=== PATIENT | male | born 1945 | race Caucasian/White ===

== ENCOUNTER 2018-05-27 08:32 | Emergency (ER) | payer MEDICARE ==
[2018-05-27 09:59] LABS: ALT (SGPT) 22 U/L (8-55); AST (SGOT) 28 U/L (5-34); Albumin 4.1 g/dL (3.4-4.8); Alkaline Phosphatase 59 U/L (40-150); Anion Gap 12 mmol/L (10-20); BUN (Urea Nitrogen) 15 mg/dL (8.4-25.7); Bilirubin, Total 0.6 mg/dL (0.2-1.2); Calc. Creatinine Clearance 0 mL/min (70-130); Calcium 9.4 mg/dL (7.8-10.44); Carbon Dioxide 25 mmol/L (23-31); Chloride 108 mmol/L (98-107); Estimated GFR-MDRD 79; Globulin 2.9 g/dL (2.4-3.5); Glucose 107 mg/dL (80-115); Potassium 4.2 mmol/L (3.5-5.1); Sodium 141 mmol/L (136-145)
[2018-05-27 10:07] LABS: #Basophils 0.1 thou/uL (0.0-0.2); #Lymphocytes 0.9 thou/uL (1.20-3.40); #Monocytes 0.4 thou/uL (0.11-0.59); #Neutrophils 3.8 thou/uL (1.40-6.50); %Basophils 1.1 % (0.0-1.0); %Eosinophils 0.6 % (0.0-10.0); %Lymphocytes 17.3 % (21.0-51.0); %Monocytes 7.9 % (0.0-10.0); %Neutrophils 73.2 % (42.0-75.0); Hemoglobin 14.9 g/dL (14.0-18.0); Mean Corpuscular HGB CONC 36.6 g/dL (32.0-36.0); Mean Corpuscular Hemoglobin 33.7 pg (27.0-31.0); Mean Corpuscular Volume 92.2 fL (78.0-98.0); Mean Platelet Volume 6.6 fL (7.4-10.4); Platelet Count 185 thou/uL (130-400); RBC Distribution Width 11.2 % (11.5-14.5); Red Blood Cell (RBC) Count 4.41 mill/uL (4.70-6.10); White Blood Cell (WBC) Count 5.2 thou/uL (4.8-10.8)
--- NOTE | 2018-05-27 17:44 | RAD ---
PORTABLE CHEST: DATE: 05/27/2018. FINDINGS: An AP portable film at 0852 is compared with a 02/21/2012 study. The heart size is normal. There is no congestion, edema, or pleural effusion. The lungs are clear. The mediastinum appears normal. IMPRESSION: No acute findings. POS: HOME
== END 2018-05-27 10:27 | disposition home or self-care (01) ==
LOC: BURERS 08:32
DX: M62.838 Other muscle spasm (principal); R19.7 Diarrhea, unspecified
CPT/HCPCS: 36415; 71045; 80053; 84484; 85025; 93005; 94760

== ENCOUNTER 2018-09-20 21:08 | Emergency (ER) | payer MEDICARE ==
[2018-09-20 21:50] LABS: Bilirubin Small (Negative); Blood, Urine Moderate (Negative); Clarity Slightly Cloudy (Clear); Glucose, Urine (Dipstick) 100 mg/dL (Negative); Leukocyte Negative (Negative); Nitrite Negative (Negative); Protein, Urine (Dipstick) 30 mg/dL (Neg-Trace); Specific Gravity, Urine 1.025 (1.005-1.030); Urobilinogen 0.2 mg/dL (0.2-1.0); pH, Urine 5.5 (5.0-9.0)
[2018-09-20 21:59] LABS: Bacteria/HPF 1+ HPF (None Seen); Squamous Epithelial 0-3 HPF (0-3)
[2018-09-20 22:00] LABS: Crystals/HPF 1+ CA OXALATE HPF (Negative)
[2018-09-20] MEDS ORDERED: Morphine 4 MG/ML VIAL ONE (22:09)
[2018-09-20] MEDS ORDERED: Ondansetron ODT 4 MG TAB ONE (22:09)
[2018-09-20 22:52] LABS: #Lymphocytes 0.5 thou/uL (1.20-3.40); #Monocytes 0.4 thou/uL (0.11-0.59); %Basophils 0.4 % (0.0-1.0); %Lymphocytes 5.2 % (21.0-51.0); %Monocytes 4.9 % (0.0-10.0); %Neutrophils 89.6 % (42.0-75.0); Hemoglobin 12.3 g/dL (14.0-18.0); Mean Corpuscular HGB CONC 33.9 g/dL (32.0-36.0); Mean Corpuscular Hemoglobin 32.6 pg (27.0-31.0); Mean Corpuscular Volume 96.2 fL (78.0-98.0); Mean Platelet Volume 7.1 fL (7.4-10.4); Platelet Count 163 thou/uL (130-400); RBC Distribution Width 11.7 % (11.5-14.5); Red Blood Cell (RBC) Count 3.76 mill/uL (4.70-6.10)
[2018-09-20 23:10] LABS: ALT (SGPT) 18 U/L (8-55); AST (SGOT) 24 U/L (5-34); Albumin 3.9 g/dL (3.4-4.8); Alkaline Phosphatase 52 U/L (40-150); Anion Gap 15 mmol/L (10-20); BUN (Urea Nitrogen) 19 mg/dL (8.4-25.7); Bilirubin, Total 0.6 mg/dL (0.2-1.2); Calc. Creatinine Clearance 0 mL/min (70-130); Calcium 9.2 mg/dL (7.8-10.44); Carbon Dioxide 23 mmol/L (23-31); Chloride 106 mmol/L (98-107); Estimated GFR-MDRD 49; Globulin 2.4 g/dL (2.4-3.5); Glucose 108 mg/dL (83-110); Potassium 3.9 mmol/L (3.5-5.1); Protein, Total 6.3 g/dL (5.8-8.1); Sodium 140 mmol/L (136-145)
[2018-09-21] MEDS ORDERED: Sulfameth/Trimethoprim DS 800-160mg TAB ONE (00:28)
--- NOTE | 2018-09-21 08:50 | CT ---
PRELIMINARY REPORT/[facility]/EMERGENCY AFTER HOURS PROCEDURE: EXAM: CT Abdomen and Pelvis Without Contrast EXAM DATE/TIME: 09/20/2018 10:18 PM CLINICAL HISTORY: 73 years old, male; Patient HX: Low back pain TECHNIQUE: Imaging protocol: Axial computed tomography images of the abdomen and pelvis without contrast. Radiat ion optimization: All CT scans at this facility use at least one of these dose optimization technique s: automated exposure control; mA and/or kV adjustment per patient size (includes targeted exams wher e dose is matched to clinical indication); or iterative reconstruction. COMPARISON: No relevant prior studies available. FINDINGS: Lungs: There is subpleural atelectasis of the dependent portions of the lungs. ABDOMEN: Liver: The liver is within normal limits for this noncontrast study. Gallbladder and bile ducts: The gallbladder is normal. There is no evidence of biliary ductal dilatio n. Pancreas: The pancreas appears normal. No ductal dilatation. Spleen: The spleen is normal. Adrenals: The adrenal glands are normal. Kidneys and ureters: The left kidney is normal. There is a 4 x 4 x 5 mm proximal right ureteral obstr ucting calculus with associated moderate right hydronephrosis and mild perinephric stranding. Stomach and bowel: The stomach is normal. The duodenum is unremarkable. The colon is normal. Appendix: A normal appendix is identified. PELVIS: Bladder: The bladder is normal. Reproductive: The prostate gland and seminal vesicles are normal. ABDOMEN and PELVIS: Intraperitoneal space: Normal. No free air. No significant fluid collection. Bones/joints: No acute fracture. No dislocation. Soft tissues: Unremarkable. Vasculature: Normal. No abdominal aortic aneurysm. Lymph nodes: Normal. No enlarged lymph nodes. IMPRESSION: There is a 4 x 4 x 5 mm proximal right ureteral obstructing calculus with associated moderate right h ydronephrosis and mild perinephric stranding. Thank you for allowing us to participate in the care of your patient. Dictated and Authenticated by: Terrell Sahu MD 09/20/2018 10:57 PM Central Time ([place] & [place]) FINAL REPORT CT ABDOMEN AND PELVIS WITHOUT CONTRAST: DATE: 09/20/2018. FINDINGS: A noncontrast CT was done for evaluation of abdominal pain. Axial slices were obtained without IV co ntrast followed by coronal and sagittal reconstructions. The lung bases are clear, except for some very minimal dependent atelectasis. On the topmost slice, there is a soft tissue density associated with the left breast tissue. The finding is indeterminate and I would need to see other slices above to see if this was significant or not. Correlate with phy sical exam. The main finding on this study is a 5 mm proximal right ureteral calculus that is at about the L3 lev el. It is causing mild to moderate right hydronephrosis. There is at least one nonobstructing calcu malu remaining in the right kidney. No abnormalities are seen in the left kidney. The liver, spleen, pancreas, gallbladder, and adrenal glands were unremarkable within the limitations of a noncontrast study. The aorta was normal in caliber throughout. There is virtually no arterios clerotic calcification in the aorta. CT of the pelvis shows no pelvic masses, fluid collections, or inflammatory changes. Multiple phlebo liths are seen in the deep pelvis. There is no bowel wall thickening. Minimal fat-filled inguinal h ernias are noted. There is a mild degree of central canal stenosis at L4-L5 due to a combination of a diffusely bulging disk and facet hypertrophy and arthritis. IMPRESSION: 1. A 5 mm proximal right ureteral calculus causing mild to moderate right hydronephrosis. 2. Nonobstructing calculus remaining in the right kidney. 3. Asymmetric soft tissue density associated with the left breast, significance uncertain. Report in agreement with preliminary reading by [facility]. POS: HOME
== END 2018-09-21 00:34 | disposition home or self-care (01) ==
LOC: BURERS 21:08
DX: N13.2 Hydronephrosis with renal and ureteral calculous obstruction (principal); E78.00 Pure hypercholesterolemia, unspecified; Z79.899 Other long term (current) drug therapy; Z79.891 Long term (current) use of opiate analgesic
CPT/HCPCS: 36415; 74176; 80053; 81003; 81015; 85025; 87086; 96372; J2270; Q0162

== ENCOUNTER 2018-10-06 09:17 | Outpatient (CLI) | payer MEDICARE ==
--- NOTE | 2018-10-06 17:34 | RAD ---
ABDOMEN ONE VIEW: Date: 10-06-18 History: Evaluation of this patient with known ureteral and renal calculi. FINDINGS: A recent CT showed an obstructing 5 mm right ureteral calculus at about the L3 level. Today's plain film examination shows a 5 mm calcification to the right of the L4 vertebra that is pre sumed to be the calculus. Thus, it has moved inferiorly by only on vertebra width. Numerous pelvic ca lcifications are probably phleboliths. There are one or two calcifications overlying the right kidney that are retained calculi. The abdominal gas pattern is normal. IMPRESSION: 5 mm right ureteral calculus has moved from the L3 to the L4 level since the prior CT exam. POS: HOME
== END 2018-10-06 09:18 | disposition home or self-care (01) ==
LOC: BURRAD 09:17
PROVIDERS: ATTEND Family Medicine
DX: N28.9 Disorder of kidney and ureter, unspecified (principal); N20.1 Calculus of ureter
CPT/HCPCS: 74018

== ENCOUNTER 2018-10-23 09:12 | Outpatient (CLI) | payer MEDICARE ==
--- NOTE | 2018-10-23 17:28 | RAD ---
ABDOMEN ONE VIEW: 10/23/18 Comparison is made with the 10/06/18 study. There is a large amount of fecal material in the colon tod ay, and it is semiopaque as if the patient has had some sort of a contrast study or ingested some med ication that provides contrast to the bowel. As the result, it is much more difficult to definitively separate out structures in the abdomen today compared to before. What I interpret to be the right renal calculus is now at the L5 level just above the right SI joint. The abdominal gas pattern is normal. IMPRESSION: Presumptive movement of the right ureteral calculus down to the L5 level just above the SI joint. POS: HOME
== END 2018-10-23 09:13 | disposition home or self-care (01) ==
LOC: BURRAD 09:12
PROVIDERS: ATTEND Family Medicine
DX: N20.1 Calculus of ureter (principal)
CPT/HCPCS: 74018

== ENCOUNTER 2018-11-07 09:30 | Outpatient (CLI) | payer MEDICARE ==
--- NOTE | 2018-11-07 17:49 | RAD ---
ABDOMEN TWO VIEWS: 11/07/18 Comparison is made with the prior study of 10/23/18. Gas and fecal material potentially obscures small calculi. The calculus that was seen immediately to the right of the L5 vertebra on the prior scan is not in the same position. I cannot definitely ident neal it today. There is a question of a calcification overlying a portion of S1 on the right but the o verlapping structures makes it impossible to be sure. There is rounded calcifications deep in the pel vis are obviously phleboliths and are unchanged. The abdominal gas pattern is normal with no sign of obstruction. A moderate amount of fecal material is seen in the colon. There is no free air. IMPRESSION: Definite calcification not seen to the right of L5. Question of a calcification overlying the right s kathy of S1 but this finding is indefinite due to adjacent fecal material. POS: HOME
== END 2018-11-07 09:31 | disposition home or self-care (01) ==
LOC: BURRAD 09:30
PROVIDERS: ATTEND Family Medicine
DX: N20.1 Calculus of ureter (principal)
CPT/HCPCS: 74019

== ENCOUNTER 2020-07-13 04:00 | Emergency (ER) | payer MEDICARE ==
[2020-07-13] MEDS ORDERED: Fentanyl 100 MCG/2 ML VIAL ONE (04:21)
[2020-07-13] MEDS ORDERED: Ondansetron PF 4 MG/2 ML Vial ONE (04:22)
[2020-07-13] MEDS ORDERED: Ketorolac Tromethamine 30 MG/ML VIAL ONE (04:22)
[2020-07-13 04:46] LABS: #Lymphocytes 0.8 thou/uL (1.20-3.40); #Monocytes 0.5 thou/uL (0.11-0.59); #Neutrophils 7.8 thou/uL (1.40-6.50); %Basophils 0.5 % (0.0-1.0); %Eosinophils 0.4 % (0.0-10.0); %Lymphocytes 8.2 % (21.0-51.0); %Monocytes 5.7 % (0.0-10.0); %Neutrophils 85.1 % (42.0-75.0); Hemoglobin 14.3 g/dL (14.0-18.0); Mean Corpuscular HGB CONC 34.9 g/dL (32.0-36.0); Mean Corpuscular Hemoglobin 33.5 pg (27.0-31.0); Mean Corpuscular Volume 95.9 fL (78.0-98.0); Platelet Count 168 thou/uL (130-400); RBC Distribution Width 11.5 % (11.5-14.5); Red Blood Cell (RBC) Count 4.27 mill/uL (4.70-6.10); White Blood Cell (WBC) Count 9.2 thou/uL (4.8-10.8)
[2020-07-13 04:50] LABS: Bilirubin Negative (Negative); Blood, Urine Moderate (Negative); Clarity Slightly Cloudy (Clear); Glucose, Urine (Dipstick) Negative (Negative); Ketone, Urine Trace mg/dL (Negative); Leukocyte Negative (Negative); Nitrite Negative (Negative); Protein, Urine (Dipstick) 100 mg/dL (Neg-Trace)
[2020-07-13 05:01] LABS: ALT (SGPT) 22 U/L (8-55); AST (SGOT) 29 U/L (5-34); Albumin 4.1 g/dL (3.4-4.8); Alkaline Phosphatase 67 U/L (40-110); Anion Gap 16 mmol/L (10-20); BUN (Urea Nitrogen) 20 mg/dL (8.4-25.7); Bilirubin, Total 0.5 mg/dL (0.2-1.2); Calc. Creatinine Clearance 0 mL/min (70-130); Calcium 8.9 mg/dL (7.8-10.44); Carbon Dioxide 23 mmol/L (23-31); Chloride 108 mmol/L (98-107); Globulin 2.9 g/dL (2.4-3.5); Glucose 138 mg/dL (83-110); Potassium 3.7 mmol/L (3.5-5.1); Sodium 143 mmol/L (136-145)
[2020-07-13 05:04] LABS: Bacteria/HPF 1+ HPF (None Seen); Mucous/LPF 1+ LPF (<2+); Squamous Epithelial 0-3 HPF (0-3); WBC/HPF 0-3 HPF (0-3)
--- NOTE | 2020-07-13 07:34 | CT ---
PRELIMINARY REPORT/[facility]/EMERGENCY AFTER HOURS PROCEDURE: EXAM: CT Abdomen and Pelvis Without Intravenous Contrast CLINICAL HISTORY: Right flank pain, history of stones. comparison sent. TECHNIQUE: Axial computed tomography images of the abdomen and pelvis without intravenous contrast. CONTRAST: None. COMPARISON: September 20, 2018 FINDINGS: LUNG BASES: No basilar airspace consolidation or pleural effusion. LIVER: Unremarkable. GALLBLADDER AND BILE DUCTS: Unremarkable. No calcified stone. No ductal dilation. PANCREAS: Unremarkable. SPLEEN: Unremarkable. ADRENAL GLANDS: Unremarkable. KIDNEYS, URETERS, AND BLADDER: Severe hydronephrosis on the right with abundant perinephric induration. There is a 1 cm stone in th e mid-distal ureter. No intrarenal stones are seen. Left kidney and collecting system grossly unrem arkable on this noncontrast study. There is also a 5 mm stone within the bladder lumen. STOMACH AND BOWEL: Evaluation of the GI tract is limited due to lack of contrast and limited distention of the GI tract. No obvious, acute GI abnormalities are identified. APPENDIX: Normal appendix. PERITONEUM: No free fluid. No free air. LYMPH NODES: No lymphadenopathy. REPRODUCTIVE: Unremarkable as visualized. VASCULATURE: No aortic aneurysm. ABDOMINAL WALL AND SOFT TISSUES: Unremarkable. BONES: No fracture or suspicious osseous abnormality. IMPRESSION: Severe hydronephrosis on the right with a large ureteral stone. 5 mm bladder stone. ELECTRONICALLY SIGNED BY: Terrell Sims MD Jul 13, 2020 5:06:01 AM [employer] This report is intended for review by the ordering physician only, in accordance of law. If you recei ve this report in error, please call [facility] at [phone]. FINAL REPORT CT ABDOMEN AND PELVIS WITHOUT CONTRAST: Date: 07/13/2020 Comparison is made with the 09/20/2018 study. Today's exam shows severe right hydronephrosis that is secondary to a right ureteral calculus situate d at the L5-S1 level. It measures approximately 11.0 x 8.0 mm. In addition, there is a 6.0 mm calculu s within the urinary bladder. No residual renal calculi are seen at the moment, though there may be a tiny one forming in the lower pole of the left kidney. The lung bases are clear. The liver, spleen, pancreas, adrenal glands, and abdominal aorta showed no acute findings within the limitations of a noncontrast study. The bowel was unremarkable in appearanc e, with no dilation, wall thickening, or inflammatory change around it. CT of the pelvis shows no pelvic masses, inflammatory changes, or adenopathy. IMPRESSION: 1. Severe right hydronephrosis with abundant perinephric stranding secondary to an 11.0 mm calculus in the right ureter at the L5-S1 level. 2. 6.0 mm calculus in the urinary bladder. 3. Very tiny calculus beginning to form in the lower pole of the left kidney. Report in agreement with the preliminary reading by [facility]. POS: HOME
== END 2020-07-13 05:35 | disposition home or self-care (01) ==
LOC: BURERS 04:00
DX: N13.2 Hydronephrosis with renal and ureteral calculous obstruction (principal); E78.00 Pure hypercholesterolemia, unspecified; Z79.899 Other long term (current) drug therapy
CPT/HCPCS: 74176; 80053; 81003; 81015; 85025; 87086; 94760; 96374; 96375; J1885; J2405; J3010

== ENCOUNTER 2022-06-15 10:45 | Emergency (ER) | payer MEDICARE ==
[2022-06-15 11:12] LABS: Bilirubin Negative (Negative); Blood, Urine Negative (Negative); Clarity Clear (Clear); Glucose, Urine (Dipstick) Negative (Negative); Ketone, Urine Negative (Negative); Leukocyte Negative (Negative); Nitrite Negative (Negative); Protein, Urine (Dipstick) Negative (Neg-Trace); Urobilinogen 0.2 mg/dL (Less than 2); pH, Urine 7.5 (5.0-9.0)
[2022-06-15] MEDS ORDERED: Ketorolac Tromethamine 30 MG/ML VIAL ONE (11:16)
[2022-06-15] MEDS ORDERED: Ondansetron PF 4 MG/2 ML Vial ONE (11:16)
[2022-06-15 11:19] LABS: #Lymphocytes 1.1 thou/uL (1.20-3.40); #Monocytes 0.4 thou/uL (0.11-0.59); #Neutrophils 3.6 thou/uL (1.40-6.50); %Basophils 0.8 % (0.0-1.0); %Eosinophils 0.5 % (0.0-10.0); %Lymphocytes 20.6 % (21.0-51.0); %Monocytes 8.2 % (0.0-10.0); Hemoglobin 14.7 g/dL (14.0-18.0); Mean Corpuscular HGB CONC 35.1 g/dL (32.0-36.0); Mean Corpuscular Hemoglobin 33.3 pg (27.0-31.0); Mean Corpuscular Volume 94.6 fl (78.0-98.0); Mean Platelet Volume 6.9 fL (7.4-10.4); Platelet Count 200 10x3/uL (130-400); RBC Distribution Width 11.6 % (11.5-14.5); Red Blood Cell (RBC) Count 4.43 mill/uL (4.70-6.10); White Blood Cell (WBC) Count 5.2 10x3/uL (4.8-10.8)
[2022-06-15 11:36] LABS: ALT (SGPT) 21 U/L (8-55); AST (SGOT) 24 U/L (5-34); Albumin 4.4 g/dL (3.4-4.8); Alkaline Phosphatase 75 U/L (40-110); Anion Gap 12 mmol/L (10-20); BUN (Urea Nitrogen) 17 mg/dL (8.4-25.7); Calc. Creatinine Clearance 0 mL/min (70-130); Calcium 9.4 mg/dL (7.8-10.44); Carbon Dioxide 27 mmol/L (23-31); Chloride 106 mmol/L (98-107); Estimated GFR 88; Glucose 101 mg/dL (83-110); Potassium 3.8 mmol/L (3.5-5.1); Protein, Total 7.4 g/dL (5.8-8.1); Sodium 141 mmol/L (136-145)
[2022-06-15 14:19] LABS: Bilirubin, Total 0.7 mg/dL (0.2-1.2)
== END 2022-06-15 12:07 | disposition home or self-care (01) ==
LOC: BURERS 10:45
DX: R10.9 Unspecified abdominal pain (principal); E78.00 Pure hypercholesterolemia, unspecified; Z79.899 Other long term (current) drug therapy
CPT/HCPCS: 36415; 74176; 80053; 81003; 85025; 96374; 96375; J1885; J2405

== ENCOUNTER 2023-10-15 23:04 | Emergency (ER) | payer MEDICARE ==
[2023-10-15] MEDS ORDERED: Morphine 4 MG/ML VIAL ONE (23:19)
[2023-10-15] MEDS ORDERED: Ondansetron PF 4 MG/2 ML Vial ONE (23:19)
[2023-10-15] MEDS ORDERED: Ketorolac Tromethamine 30 MG (1 mL) VIAL ONE (23:41)
[2023-10-15 23:44] LABS: ALT (SGPT) 17 U/L (8-55); AST (SGOT) 24 U/L (5-34); Albumin 4.2 g/dL (3.4-4.8); Alkaline Phosphatase 74 U/L (40-110); Anion Gap 15 mmol/L (10-20); BUN (Urea Nitrogen) 19 mg/dL (8.4-25.7); Bilirubin, Total 0.5 mg/dL (0.2-1.2); Calc. Creatinine Clearance 0 mL/min (70-130); Calcium 9.1 mg/dL (7.8-10.44); Carbon Dioxide 22 mmol/L (23-31); Chloride 107 mmol/L (98-107); Estimated GFR 49; Glucose 114 mg/dL (83-110); Potassium 3.8 mmol/L (3.5-5.1); Protein, Total 7.2 g/dL (5.8-8.1); Sodium 140 mmol/L (136-145)
[2023-10-15 23:51] LABS: #Eosinphils 0.1 thou/uL (0.0-0.7); #Lymphocytes 1.4 thou/uL (1.20-3.40); #Monocytes 0.5 thou/uL (0.11-0.59); #Neutrophils 3.1 thou/uL (1.40-6.50); %Eosinophils 1.1 % (0.0-10.0); %Lymphocytes 27.2 % (21.0-51.0); %Monocytes 10.5 % (0.0-10.0); %Neutrophils 60.2 % (42.0-75.0); Hematocrit 40.4 % (42.0-52.0); Hemoglobin 13.9 g/dL (14.0-18.0); Mean Corpuscular HGB CONC 34.4 g/dL (32.0-36.0); Mean Corpuscular Hemoglobin 32.4 pg (27.0-31.0); Mean Corpuscular Volume 94.2 fl (78.0-98.0); Mean Platelet Volume 6.7 fL (7.4-10.4); Platelet Count 190 10x3/uL (130-400); RBC Distribution Width 11.2 % (11.5-14.5); Red Blood Cell (RBC) Count 4.29 mill/uL (4.70-6.10); White Blood Cell (WBC) Count 5.1 10x3/uL (4.8-10.8)
[2023-10-16 00:20] LABS: Bilirubin Negative (Negative); Blood, Urine Large (Negative); Clarity Clear (Clear); Glucose, Urine (Dipstick) Negative (Negative); Ketone, Urine Trace mg/dL (Negative); Leukocyte Negative (Negative); Nitrite Negative (Negative); Protein, Urine (Dipstick) 30 mg/dL (Neg-Trace)
[2023-10-16 00:37] LABS: Bacteria/HPF None Seen HPF (None Seen); CAUTI Indications for Culture Dysuria,urgency,freq; RBC/HPF Greater than 50 HPF (0-3); Squamous Epithelial None Seen HPF (0-3); WBC/HPF None Seen HPF (0-3)
[2023-10-16 00:38] LABS: Urine Culture Reflex No No
== END 2023-10-16 00:49 | disposition home or self-care (01) ==
LOC: BURERS 23:04
DX: N20.0 Calculus of kidney (principal)
CPT/HCPCS: 74176; 80053; 81001; 85025; 96374; 96375; J1885; J2270; J2405